=== PATIENT | male | born 1970 | race Caucasian/White ===

== ENCOUNTER 2025-07-12 06:01 | Day surgery (SDC) | payer MEDICARE, SELFPAY ==
[2025-07-12] VITALS (15 sets, daily range): BP systolic 146–192; BP diastolic 99–154; BMI 38.0
[2025-07-12] MEDS: LOW STRENGTH ASPIRIN 162 MG PO (07:38)
[2025-07-12 09:10] LABS: ACT-LR - POC > 397 Seconds (116-155)
[2025-07-12 09:21] LABS: ACT-LR - POC 316 Seconds (116-155)
[2025-07-12 09:37] LABS: ACT-LR - POC 327 Seconds (116-155)
--- NOTE | 2025-07-12 09:59 | ITS.CL.ANGIO ---
[employer] [facility] - Angioplasty
Angioplasty
Procedure Report:
CARDIAC CATHETERIZATION REPORT
Date of Procedure: 07/12/2025
Referring: Noé Her D.O.
INDICATION: Atypical chest pain, shortness of breath with exertion, high risk stress test.
PROCEDURE:
1. Left heart catheterization.
2. Coronary angiography.
3. Successful IVUS guided PCI of the proximal LAD.
A total of 86 minutes of procedural/moderate sedation was utilized. An independent resident medical officer was present to assist with and help manage the patient's level of consciousness and physiologic status.
ACCESS:
1. 6 [place] right radial artery using a modified Seldinger technique delete the.
CATHETERS:
1. 5 [place] JR4.
2. 5 [place] JL 3.5.
3. 6 [place] EBU 3.75 guiding catheter.
HEMODYNAMIC DATA
Weight (kg): 127.0
AO (s/d/x, mmHg): 159/108/129
LV (s/x mmHg): 159/30
AV gradient (x, mmHg): None.
LEFT VENTRICULOGRAPHY: Not performed.
CORONARY ANGIOGRAPHY
Dominance: Right.
Left Main: Normal size, trifurcating vessel. There is no coronary artery disease.
LAD: Large size vessel giving rise to 2 diagonals before wrapping around the apex and supplying the distal inferior wall. There is hazy, densely calcified, 80-90% lesion in the proximal vessel spanning the origin of D1.
Ramus: Normal size vessel supplying the lateral wall. There is no coronary artery disease.
Circumflex: Normal size, nondominant vessel giving rise to 2 obtuse marginals. OM1 is a small vessel. OM 2 is a much larger vessel supplying the inferolateral wall as it bifurcates into a small lower and much larger upper branch. There is
no coronary artery disease.
RCA: Normal size, dominant vessel. There is no coronary artery disease.
INTERVENTION(S)
1. Successful PCI of the 80-90% proximal LAD lesion (Xience Skypoint 4.0 x 23 CLARA, postdilated with a 4.0 NC balloon) with reduction in stenosis to 0%, maintaining LAI-3 flow in the LAD and in the first diagonal.
2. Successful intravascular ultrasound.
Narrative:
The decision was made to proceed with percutaneous coronary intervention. The diagnostic catheter was removed over a wire and a 6Fr EBU 3.75 guiding catheter was advanced to the aortic root and seated in the left main coronary artery. Additional
heparin was given and a Power Turn Flex wire was advanced into the distal LAD. A BMW wire was advanced into the large first diagonal for protection. The densely calcified, hazy 80-90% proximal LAD lesion was predilated with a 2.0 x 12
semi-compliant balloon to 12 herman. The first dilation balloon was withdrawn and a 3.0 x 15 semicompliant balloon was advanced. The lesion was predilated to 12 herman. Good balloon expansion was observed.
The decision was made to perform intracoronary imaging. An IVUS catheter was advanced through the guiding catheter and into the ostium of the artery. Ring down was performed once the imaging crystal was no longer inside of the guiding catheter. The
IVUS catheter was advanced into the mid LAD, beyond the lesion in question. Intravascular ultrasound was performed in a retrograde fashion using a slow pullback. Intracoronary imaging demonstrated a severe atherosclerotic lesion in the proximal LAD
that is immediately proximal to the first large diagonal. Vessel measurements were obtained.
The IVUS catheter was removed and a Xience Skypoint 4.0 x 23 drug-eluting stent was advanced. The stent was deployed at 12 atmospheres. The stent balloon was removed. A 4.0 x 15 noncompliant balloon was advanced into the stent and the stent was
postdilated to 12 atmospheres.
IVUS was repeated and demonstrated good stent apposition throughout the entire stented segment. There was some mild underexpansion in the central stent portion near the densely calcified portion of the lesion. The 4.0 x 15 noncompliant balloon was
readvanced but had difficulty reentering the artery due to wire braiding. The power turn flex wire was pulled back from the distal LAD and redirected into the diagonal, demonstrating that the artery was reaccessible percutaneously. The BMW wire
was withdrawn from behind the stent, though the guide was sucked into the artery during the removal of this wire. The BMW wire was readvanced into the LAD and the 4.0 x 15 NC balloon was advanced over the BMW wire. Unfortunately, this balloon
would not enter the stent again. The power turn flex wire was withdrawn entirely out of concern that braiding was a continued problem. Unfortunately, the balloon would still not advance over the BMW wire. The balloon was withdrawn and a fresh 4.0
x 12 NC balloon was advanced. Unfortunately, this balloon would also not advance over the BMW wire. The 4.0 x 12 NC balloon was withdrawn and the power turn flex wire was readvanced into the distal LAD. The BMW wire was removed. The 4.0 x 12 NC
balloon was readvanced, but again had difficulty crossing the proximal stent threshold. At this point, I became concerned that the guide had deformed the proximal edge of the stent when it had been pulled and withdrawing the BMW wire. The power
turn flex wire was withdrawn and readvanced extremely cautiously through the stented segment making sure that the tip remained free. The 4.0 x 12 NC balloon was readvanced and with some effort, was able to cross the proximal stent edge. The
midportion of the stent was postdilated to 18 herman. The balloon was pulled back to the proximal edge of the stent which was subsequently redilated to 18 herman. With this redilation, movement of the balloon in and out of the stent became significantly
easier. The balloon was withdrawn.
IVUS was repeated demonstrating excellent apposition of the stent throughout the entire stented segment, improved stent expansion in the midportion and no evidence of vessel disruption. The IVUS catheter was withdrawn.
Angiography was performed in orthogonal views, confirming good stent expansion and an excellent angiographic result. The coronary wire was withdrawn and the guide was disengaged from the artery. The catheter was removed over a standard J-wire.
Closure Device: Vascular band.
Radiation (mGy): 2096.38
DAP (cm2.Gy): 117.02
Fluoroscopy time (minutes): 21.8
CONCLUSIONS
1. Right dominant circulation with a densely calcified, hazy 80-90% lesion in the proximal LAD status post successful IVUS guided PCI (Xience Skypoint 4.0 x 23 CLARA, postdilated with a 4.0 NC balloon) with reduction in stenosis to 0%, maintaining
LAI-3 flow in the LAD and first diagonal.
2. Severely elevated filling pressures (LVEDP = 30 mmHg at 127.0 kg).
3. Systemic hypertension.
RECOMMENDATIONS:
1. Expectant management after cardiac catheterization via right radial approach.
2. Limited weight bearing on the right wrist for one week.
3. Antithrombotic therapy with apixaban and clopidogrel for at least 12 months, followed by apixaban indefinitely.
4. Aggressive secondary prevention with high-dose, high potency statin. Goal LDL <55.
5. OMT/GDMT as hemodynamics will tolerate.
6. Start furosemide 40 mg p.o. daily for severe elevation in filling pressures. BMP in 1 week to monitor renal function and potassium levels.
7. Referral to cardiac rehab.
8. Stable for outpatient follow-up with primary cardiology.
Copy to: Noé Her D.O.
aPulino Multani DO, FACC, FACP
[2025-07-12] MEDS: LASIX 40 MG IV (10:39)
[2025-07-12] MEDS: LOPRESSOR 50 MG PO (10:42)
--- NOTE | 2025-07-12 14:40 | W.PN.UPDATE ---
Update Note
Progress Note Update
Pt seen post LAD PCI. Right radial cath site without ht/bleeding, OOB ambulating, urinating without difficulty. Post EKG AFib 90s as before, no acute changes. Will be on plavix + eliquis, no role for aspirin. Resume eliquis tonight at usual time.
Will increase atorvastatin to 80mg and start lasix 40mg daily. Given 40mg IV x1 in recovery with good diuresis. BMP in 1 week, results to Dr. Her ([facility]). Cardiac rehab consulted. Followup with Dr. Her as scheduled. Home today if cath
site/tele remain stable.
== END 2025-07-12 15:15 | disposition home or self-care (01) ==
LOC: CATH 06:01
PROVIDERS: ATTENDING PHYSICIAN Internal Medicine Cardiovascular Disease; FAMILY PHYSICIAN General Practice; OTHER PHYSICIAN Internal Medicine Cardiovascular Disease
DX: I25.10 Atherosclerotic heart disease of native coronary artery without angina pectoris (principal); I25.84 Coronary atherosclerosis due to calcified coronary lesion; F17.210 Nicotine dependence, cigarettes, uncomplicated; I10 Essential (primary) hypertension; I48.91 Unspecified atrial fibrillation; E78.5 Hyperlipidemia, unspecified; Z79.02 Long term (current) use of antithrombotics/antiplatelets; Z79.82 Long term (current) use of aspirin
CPT/HCPCS: 92978; 99152; 99153; 93005; 93458; C1725; C1753; C1769; C1874; C9600; Q9967